=== PATIENT | male | born 1970 | race Caucasian/White ===

== ENCOUNTER 2021-04-04 17:52 | Emergency (ER) | payer OTHER, SELFPAY ==
--- NOTE | ~2021-04-04 | CT_ITS ---
EXAMINATION: CT BRAIN W/O DATE: 04/04/2021 20:44 INDICATION: Seizures. TECHNIQUE: Computed tomography (CT) of the head was performed without intravenous contrast. The dose- length product was 605.33 mGy-cm. Automated exposure control and iterative reconstruction technique w ere employed. COMPARISON: CT dated 03/21/2016 FINDINGS: Normal brain parenchymal volume for age. Normal malone-white differentiation. No acute intrac ranial hemorrhage, infarction, mass or mass effect. No ventriculomegaly or midline shift. Midline sagittal images demonstrate a normal corpus callosum, c raniovertebral junction and sella turcica. Basilar cisterns are patent. Paranasal sinuses and mastoids are pneumatized. No depressed skull fractures. IMPRESSION: 1. No acute intracranial abnormality. Reviewed, dictated and finalized at location A.
[2021-04-04 17:54] VITALS: BP 129/78; PULSE 86; RESP 16; TEMP 35.7; O2SAT 100
--- NOTE | 2021-04-04 18:00 | ECG_ITS ---
Measurements Intervals [place] Rate: 82 P: 51 RI: 144 QRS: 91 QRSD: 121 T: 57 QT: 338 QTc: 397 Interpretive Statements SINUS RHYTHM WITH SINUS ARRHYTHMIA RIGHT BUNDLE BRANCH BLOCK BASELINE ARTIFACT- I, II, III, AVR, AVL, AVF, V2-V6 ABNORMAL ECG Electronically Signed On 04-05-2021 7:47:21 CDT by Danilo Hwang D.O.
[2021-04-04 18:11] LABS: Basophils Absolute Auto 0.1 K/mm3 (0.0-0.1); Basophils Percent Auto 0.3 % (0.2-1.2); Eosinophils Absolute Auto 0.1 K/mm3 (0-0.3); Eosinophils Percent Auto 0.4 % (0-4.4); Hematocrit 50.9 % (42.0-52.0); Hemoglobin 17.2 g/dL (14.0-18.0); Immature Granulocyte Absolute 0.07 K/mm3 (0.00-0.031); Immature Granulocyte Percent A 0.4 % (0-0.5); Lymphocytes Percent Auto 15.2 % (18.3-44.2); Mean Corpuscular HGB Conc 33.8 g/dl (32-36); Mean Corpuscular Volume 91.9 fl (80-100); Mean Platelet Volume 9.7 fl (7.4-10.4); Monocytes Absolute Auto 1.2 K/mm3 (0.1-0.6); Monocytes Percent Auto 6.3 % (2.6-8.5); Neutrophils Absolute Auto 14.8 K/mm3 (1.3-6.7); Neutrophils Percent Auto 77.4 % (45.5-73.1); Platelet Count Result 319 k/mm3 (150-375); Red Blood Count 5.54 M/mm3 (4.6-6.20); Red Cell Distribution Width 13.2 % (11.5-14.5); White Blood Count 19.1 K/mm3 (4.5-10.0)
[2021-04-04 18:31] LABS: Anion Gap 10 mmol/L (8-16); Blood Urea Nitrogen 10 mg/dL (9-20); Calcium 9.3 mg/dL (8.4-10.2); Carbon Dioxide 24 mmol/L (22-30); Chloride 102 mmol/L (98-107); Estimated CRCL calculation 83 ml/min; Estimated Glomerular Filt Rate > 60; Glucose 135 mg/dL (65-110); Sodium 136 mmol/L (137-145)
[2021-04-04 19:04] VITALS: BP 134/80; PULSE 77; RESP 20; TEMP 36.8; O2SAT 99
[2021-04-04 21:31] VITALS: BP 121/98; PULSE 85; RESP 14; O2SAT 96
--- NOTE | 2021-04-04 22:22 | ED.SEIZURE ---
HPI - Seizure General Chief Complaint: Seizure Stated Complaint: ? seizure Time Seen by Provider: 04/04/21 19:32 Source: patient and family Mode of arrival: ambulatory Limitations: no limitations History of Present Illness HPI Narrative: 51-year-old male Here for evaluation of possible seizure Patient is essentially healthy He spent approximately 4 hours today getting a sleeve tattoo work done Subsequently went to [employer] and after finishing his appetizer complained of not feeling good He went out to his truck and sat down and turned on the air conditioning and appeared to be diaphoretic Per his he seemed to have some fairly mild but nonetheless generalized shaking movements that were associated with some protruding movements of his tongue and was incontinent of urine Subsequent to that he was very confused for a couple of minutes randomly rearranging things in the cup holders that sort before returning back to normal Here he has a mild headache but no other complaints Related Data Home Medications Medication Instructions Recorded Confirmed No Home Medications 04/04/21 04/04/21 Allergies Allergy/AdvReac Type Severity Reaction Status Date / Time Penicillins Allergy Unknown Verified 04/04/21 19:04 Review of Systems Review of Systems: All systems reviewed & are unremarkable except as noted in HPI and below Constitutional: Constitutional: Reports no additional constitutional complaints, Denies chills, Denies fatigue, Denies fever(s), Denies headache(s) and Denies weakness Eyes: Eyes: Reports no additional eye complaints and Denies change in vision ENT: Denies headache(s) and Denies sore throat Cardiovascular: Cardiovascular: Denies chest pain and Denies dyspnea Respiratory: Respiratory: Denies cough and Denies dyspnea Gastrointestinal: Gastrointestinal: Denies abdominal pain, Denies diarrhea, Denies nausea and Denies vomiting Genitourinary: Genitourinary: Denies dysuria and Denies urinary frequency Musculoskeletal: Musculoskeletal: Denies myalgias, Denies deformity, Denies arthralgias, Denies joint swelling and Denies numbness Integumentary/Breasts: Skin/Breast: Denies rash and Denies wounds Neurologic: Reports headache(s), Denies focal weakness and Denies numbness Psychiatric: Psychiatric: Reports no additional psychiatric complaints Endocrine: Endocrine: Reports no additional endocrine complaints Hematologic/Lymphatic: Hematologic/Lymphatic: Reports no additional hematologic/lymphatic complaints Allergic/Immunologic: Allergic/Immunologic: Reports no additional allergic/immunologic complaints Exam Const: General: cooperative, healthy appearing, no acute distress and alert Orientation/consciousness: patient oriented x3 (alert) HENMT: Head: normal to inspection, normocephalic, atraumatic, no contusions and no hematomas Ears: external ears normal General nose exam: no epistaxis Eyes: Conjunctivae: conjunctivae normal Pupils: Equal, round and reactive pupils present EOM: EOMs intact bilaterally Neck: Neck: normal visual inspection, no lymphadenopathy, no meningeal signs, supple and no JVD Other: Supple, nontender Resp: Effort & Inspection: normal respiratory effort and not labored Auscultation: clear to auscultation bilaterally, no rales, no rhonchi, no wheezes and other (BS =) Cardio: Rate: regular rate Rhythm: regular rhythm Heart sounds: no murmurs GI: GI Palp: Yes Soft to palpation, No Tenderness to palpation present (GI), No Guarding due to palpation present (GI) and No Rebound tenderness present Skin: General skin exam: normal color and no rashes or lesions noted Neuro: General: patient oriented x3 (alert), moves all extremities, no meningeal signs, no focal motor deficits and CN's II-XI intact bilaterally Cranial nerves: Yes Nystagmus not present Speech: normal speech Extrem: General: normal to inspection and no pedal edema Psych: Affect: normal affect
[2021-04-04 22:33] VITALS: BP 112/72; PULSE 68; RESP 16; O2SAT 96
[2021-04-04 23:04] LABS: Ethanol < 10 mg/dL (<10)
[2021-04-04 23:23] LABS: Basophils Percent Auto 0.2 % (0.2-1.2); Eosinophils Percent Auto 0.2 % (0-4.4); Hematocrit 51.6 % (42.0-52.0); Hemoglobin 17.8 g/dL (14.0-18.0); Immature Granulocyte Absolute 0.05 K/mm3 (0.00-0.031); Immature Granulocyte Percent A 0.3 % (0-0.5); Lymphocytes Percent Auto 15.1 % (18.3-44.2); Mean Corpuscular HGB Conc 34.5 g/dl (32-36); Mean Corpuscular Hemoglobin 31.5 pg (26-34); Mean Corpuscular Volume 91.3 fl (80-100); Monocytes Percent Auto 5.5 % (2.6-8.5); Neutrophils Absolute Auto 13.5 K/mm3 (1.3-6.7); Neutrophils Percent Auto 78.7 % (45.5-73.1); Platelet Count Result 311 k/mm3 (150-375); Red Blood Count 5.65 M/mm3 (4.6-6.20); Red Cell Distribution Width 13.1 % (11.5-14.5); White Blood Count 17.2 K/mm3 (4.5-10.0)
[2021-04-05 00:10] LABS: Amphetamine Screen Urine Negative (Negative); Barbiturate Screen Urine Negative (Negative); Benzodiazepines Screen Urine Negative (Negative); Cannabinoid Screen Urine Negative (Negative); Cocaine Screen Urine Negative (Negative); Methadone Screen Urine Negative (Negative); Opiate Screen Urine Negative (Negative); Phencyclidine Screen Urine Negative (Negative)
[2021-04-05 00:17] VITALS: BP 123/81; PULSE 88; RESP 14; O2SAT 97
== END 2021-04-05 00:16 | disposition home or self-care (01) ==
PROVIDERS: Emergency Medicine; Emergency Provider Emergency Medicine; PCP Family Medicine
DX: R56.9 Unspecified convulsions (principal)
CPT/HCPCS: 36415; 70450; 80048; 80307; 83605; 85025; 93005; 99284

== ENCOUNTER 2022-10-01 00:18 | Day surgery (SDC) | payer OTHER, SELFPAY ==
[2022-09-29 14:12] VITALS: BMI 22.4
--- NOTE | 2022-09-29 14:17 | PC.NURSE ---
Report to the Outpatient Waiting Room, entrance under the green pavilion located off [facility], at time 1030 on date 10/01/22. Planned Procedure Time: 1230. Time changes happen often and if your time is changed the preop area will call you the afternoon before. - You and your visitor will be asked to self-screen and do not enter if you have any COVID symptoms. - Only one visitor is requested with a max of two and NO children visitors are allowed at this time. - The patient visitor may be requested to leave or wait in car when not with patient due to distancing restrictions. - A mask is optional within the hospital at this time. Patients may have clear liquids (water, carbonated beverages, clear teas, apple juice) until 3 hours prior to surgery with a maximum of 20 ounces. - No food from midnight until time of surgery Take the following medications with a SIP of water the morning of surgery: TYLENOL IF NEEDED DO NOT STOP ANY OF YOUR OTHER PRESCRIPTION MEDICATIONS PRIOR TO SURGERY EXCEPT THE FOLLOWING Medications to discontinue per physician: N/A Date to take last dose: N/A Please no make-up, nail mohawk, hairspray, perfume, deodorant, or body powder the day of surgery. No jewelry (including any body piercings) or valuables the day of surgery, leave them at home. Please take a shower or bath the night before, or the morning of, surgery with an antibacterial soap. Wear comfortable, loose fitting clothing. - Jewelry must be removed prior to entering the operating room. Rings and piercings that are not removed may be cut off. - The hospital will not accept responsibility for valuables. - Please leave all valuables, including medications, at home the day of surgery. If you are going home after surgery, a licensed driver service technician must drive you home. - NO public transportation without another adult if you receive anesthesia. - We recommend that an adult stay with you for 24 hours following discharge. - We also recommend that you do not drive, make important decision, drink alcoholic beverages, or take any drugs that were not prescribed by your health care provider for at least 24 hours after your discharge time. Follow any additional instructions given to you from your surgeon. If you or anyone in your household have experienced Covid symptoms in the past week, please notify your surgeon or the nurse liaison at the phone number below for possible testing. Telephone instructions given to PT - IMER CERVANTES and asked if any additional questions and then verbalized understanding. Patient advised to call surgeon office or pre surgery nurse liaison [phone] if any additional questions.
[2022-10-01] VITALS (7 sets, daily range): BP systolic 79–133; BP diastolic 33–92; PULSE 57–96; RESP 12–18; TEMP 36.3–36.7; O2SAT 97–100
--- NOTE | 2022-10-01 11:14 | ECG_ITS ---
Measurements Intervals [place] Rate: 80 P: 38 IA: 148 QRS: 74 QRSD: 90 T: 60 QT: 343 QTc: 396 Interpretive Statements SINUS RHYTHM INCOMPLETE RIGHT BUNDLE BRANCH BLOCK BORDERLINE ECG COMPARED TO ECG 04/04/2021 19:10:47 NO SIGNIFICANT CHANGES Electronically Signed On 10-01-2022 13:29:30 [employer]IVITY AIDE by Danilo Hwang D.O.
[2022-10-01] MEDS: ACETAMINOPHEN 500 MG TABLET 1000 MG PO (11:38)
[2022-10-01] MEDS: KETOROLAC 15 MG/ML VIAL (*BKC) IV PUSH (11:38)
--- NOTE | 2022-10-01 12:07 | WPDHPUPDATE1 ---
History and Physical Update Update Date/Time: 10/01/22 12:07 History and Physical has been reviewed, including an updated exam of the patient. There are NO changes in the patient's condition. Risks, benefits, and alternatives have been discussed and questions answered. Patient agrees to proceed with procedure.
--- NOTE | 2022-10-01 12:26 | P.PNAN_ITS ---
Anes - Initial Pre Proc Eval Procedure: Operation Date: 10/01/22 12:30 Proposed Procedures p Anorectal Examination Under Anesthesia, Excisional Hemorrhoidectomy - Abdulaziz Whitten MD Date/Time: 10/01/22 12:26 Surgeon: Abdulaziz Whitten MD Pre Op Diagnosis: internal and external thrombosed hemorrhoids Patient Data Age: 52 Gender: M Height: 1.75 m Weight: 66.2 kg Last Vital Signs Temp 97.4 F L 10/01/22 10:55 Pulse 78 10/01/22 10:55 Resp 18 10/01/22 10:55 BP 122/70 10/01/22 10:55 Pulse Ox 100 10/01/22 10:55 O2 Del Method Room Air 10/01/22 10:55 Allergies Allergy/AdvReac Type Severity Reaction Status Date / Time Penicillins Allergy Unknown Verified 09/29/22 14:11 Home Medications Medication Instructions Recorded Confirmed Type acetaminophen 650 mg 650 mg PO Q8H PRN Pain 09/29/22 09/29/22 History tablet,extended release (Tylenol 8 Hour) ibuprofen 600 mg tablet 600 mg PO TID PRN Pain 09/29/22 09/29/22 History Patient hx anesthesia problems: none Family hx anesthesia problems: none Results Review: All pre-operative results and documents have been reviewed as part of the pre- operative evaluation. [facility] Past Medical History Medical History Convulsion Family History Family History Other Acute myocardial infarction Cancer Social History Social History Smoking packs per day: 1 Smoking cigarettes per day: 20.0 Years smoked: 35 Smoking pack-years: 35.00 Smoking status: Current every day smoker Tobacco type: cigarettes Alcohol intake: current Drinks per week: 6 Alcohol use details: Socially Substance use: never Substance use type: does not use Living arrangements: with family Spiritual care concerns: No Anes - Eval Final PreProcedure Day of Procedure 10/01/22 12:26 Patient weight: normal Heart: regular rate and rhythm Lungs: clear to auscultation Airway: Mallampati scale class II Neurological: alert and oriented Last oral intake: >/= 8 hours ASA classification: II Emergent: no Anesthetic plan: proceed Anesthesia type and monitoring: general ETT and standard monitoring (prone positioning) Results Review: All pre-operative results and documents have been reviewed as part of the pre- operative evaluation. Informed Consent: The patient's anesthetic plan and its attendant risks and benefits were discus sed with the patient/family/POA. Questions were solicited and answers provided to the satisfaction of the patient/family/POA.
[2022-10-01] MEDS: ceFAZolin 2 GM/D5W 50 ML 2 GM/50 ML BAG IVPB (13:24)
[2022-10-01] MEDS: BUPivacaine HCL 0.5% PF 30 ML VIAL INFILTRATE (13:53)
[2022-10-01] MEDS: GELATIN SPONGE SZ 100 1 EACH TOPICAL (14:00)
[2022-10-01] MEDS: LIDOCAINE HCL 2% GEL UROJET 10 ML PKG MUCOUS MEM (14:00)
[2022-10-01] MEDS: LACTATED RINGERS 1,000 ML 30 ML IV CONT ×2 (14:17)
--- NOTE | 2022-10-01 14:38 | W.PM.PROC2 ---
Procedure Note - Detailed Date of Procedure 10/01/22 Pre-op Diagnosis internal and external thrombosed hemorrhoids Post-op Diagnosis Same Procedure Performed Anorectal evaluation under anesthesia and excisional hemorrhoidectomy x1 Surgeon Abdulaziz Whitten MD Bacteriologist Medical [place], [facility] Anesthesia General Indications Patient is a 52-year-old gentleman who last week was seen in my office after having had a thrombosed hemorrhoid lanced his primary care doctor's office. He was continued have bleeding that afternoon and so his primary care doctor asked me to see him urgently in the office. By the time he came to the office to bleeding had pretty much stopped. He did have a thrombosed hemorrhoid which was partially decompressed and I initially recommended allowing the acute inflammation and swelling to resolve and then discuss possible hemorrhoidectomy. However the patient complained of continued pain to the point where he could really not work and so he requested to proceed with excisional hemorrhoidectomy now. Findings Thrombosed combined internal-external hemorrhoid column right lateral region at 9:00 a.m. with the patient prone. No other significant hemorrhoids. No masses or lesions in the anal canal or distal rectum. Description of Procedure After informed consent was obtained patient was brought to the operating room was placed under general endotracheal anesthesia on the gurney and then turned onto the prone kylie-knife position on operating table. Great care was taken to make sure that all the pressure points were well padded. The buttocks were then taped apart and then the perianal region was then prepped and draped in usual sterile fashion. A time-out was then performed correctly identifying the patient as well as procedure to be performed and verified he was given perioperative IV antibiotics. I then proceeded to perform gentle dilation of the anal sphincters with a lubricated speculum. I then performed a circumferential evaluation of the distal rectum and anal canal. He did have the 1 combined internal-external hemorrhoid which had thrombosed at the 9 o'clock position in the right lateral side with the patient prone. No other significant hemorrhoids were seen. No other masses or lesions were seen in the anal canal. I then proceeded to place a 2 0 chromic suture at the apex of the thrombosed hemorrhoid. An Allis clamp was used to hold the hemorrhoid and then I used a #15 blade scalpel and incised tissue on either side of the hemorrhoid in a antonieta configuration out to the perianal skin. I then utilized electrocautery and Metzenbaum scissor dissection to dissect between the hemorrhoid tissue and the internal sphincter muscle fibers. Once the thrombosed hemorrhoid completely excised off it was sent to pathology examination. Hemostasis was achieved an incision was utilized for cautery. The incision was then closed a running the 2-0 chromic suture previously placed in a locking fashion out to the anal verge. I then transition to using a 3-0 Vicryl suture placed in a running and locking fashion to completely close the skin edges in the perianal region. I then irrigated out the anal canal sterile saline solution hemostasis was excellent. I then placed a Gelfoam packing into the anal canal with lidocaine jelly on it. I then performed a bilateral pudendal nerve block utilizing 0.5% Marcaine mixed with liposomal bupivacaine. The remaining portion of the local anesthetic mixture was then injected in the perianal region for perianal block. The area was then cleaned and then 4x4 gauze and ABD pad and disposable underwear were used for a final dressing. The patient tolerated the procedure well no complications. All sponges, needles, and instrument counts were correct at the end procedure. EBL was _20__cc. The patient was awakened and taken to recovery in stable and satisfactory condition. Implants None Estimated Blood Loss 20 Drains No Packing Yes (Gel
== END 2022-10-01 15:40 | disposition home or self-care (01) ==
PROVIDERS: PCP Family Medicine; Visit Provider Surgery
PROC: (CPT 46255; principal; 2022-10-01 12:30)
DX: K64.5 Perianal venous thrombosis (principal); K64.8 Other hemorrhoids; F17.210 Nicotine dependence, cigarettes, uncomplicated
CPT/HCPCS: 46255; 88304; 93005; A9270; C9290; J0330; J0690; J1100; J1885; J2250; J2405; J2704; J3010; J7120